=== PATIENT | female | born 2000 | race Caucasian/White ===

== ENCOUNTER 2019-02-26 07:05 | Day surgery (SDC) | payer BC, MEDICAID ==
[2019-02-23 11:50] LABS: BASOPHILS 0.2 % (0-2); EOSINOPHILS 0.8 % (0-7); HEMATOCRIT 40.9 % (36.0-48.0); HEMOGLOBIN 13.7 g/dL (12-16); IMMATURE GRANULOCYTES 0.2 % (0-5); MCHC 33.5 g/dL (31.0-37.0); MCV 86.7 fL (80.0-100.0); MEAN PLATELET VOLUME 9.6 fL (7.4-10.4); MONOCYTES 9.1 % (2-11); NEUTROPHILS 55.7 % (40-80); PLATELET COUNT 279 10x3/uL (130-400); RBC 4.72 10x6/uL (4.00-5.40); RDW 13.2 % (11.5-14.5); WBC 5.1 10x3/uL (4.8-10.8)
[~2019-02-26] VITALS: Ht 154.9 cm; Wt 70.8 kg
[2019-02-26 07:49] LABS: HCG URINE NEGATIVE (NEGATIVE)
[2019-02-26 07:55] VITALS: BP 111/66; Ht 154.9 cm; Wt 70.8 kg
--- NOTE | 2019-02-26 08:10 | NUR ---
RECREATION ATTENDANT SUPERVISOR CALLED AT THIS TIME FOR POSITIVE SUICIDE RISK SCREEN.
--- NOTE | 2019-02-26 08:11 | NUR ---
PT INSTRUCTED TO PUMP ND DUMP FOR 24 HOURS FOLLOWING ADMINISTRATION OF VALIUM.
--- NOTE | 2019-02-26 08:36 | NUR ---
DR. BLAKELY NOTIFIED AND REVIEWED PT'S BEHAVIOR AND ASSESSMENT RESULTS. PT IS A LOW RISK PER DR. BLAKELY. DR. BLAKELY STATED TO GIVE RESOURCES TO PT AT TIME OF DISCHARGE. NO FURTHER ORDERS AT THIS TIME. RESOURCES REVIEWED WITH PT AND SHE VERBALIZED UNDERSTANDING.
--- NOTE | 2019-03-01 07:14 | OP ---
PATIENT NAME: RAMYA CAR MEDICAL RECORD: [id number] :98 LOCATION:D.OPS ADMISSION DATE: SURGEON: MIGUEL A OTTO MD DATE OF OPERATION: 02/26/2019 PREOPERATIVE DIAGNOSIS: Chronic pelvic pain. POSTOPERATIVE DIAGNOSIS: Active pelvic endometriosis. PROCEDURE: 1. Diagnostic laparoscopy. 2. Fulguration of endometriosis. SURGEON: Miguel A Otto MD CARDIAC NURSE SPECIALIST: Shankar. ANESTHESIA: General. ANESTHESIOLOGIST: Dr. Luis KNITTING MACHINE OPERATOR HELPER: Emmanuel Roy FINDINGS: Uterus is retroverted. There are blebs on the anterior surface of the uterus, which may represent active endometriosis. In the cul-de-sac, there was a mild amount of blood. Both tubes were inspected and there appears to be no retrograde flow. Upon clearing the blood from the cul-de-sac, active endometriosis was seen across the lower pelvis and cul-de-sac. SPECIMENS REMOVED: None. ESTIMATED BLOOD LOSS: Minimal. FLUIDS: 800 cc lactated Ringer's. URINE OUTPUT: Quantity sufficient void prior to this procedure. COMPLICATIONS: None. DRAINS: None. INDICATIONS: The patient is a 18-year-old female with dyspareunia and deep pelvic pain with cycles. This pain is interrupting her quality of life and interfering with personal interpersonal relationships as well as work. The patient desires a diagnostic laparoscopy and any indicated procedure. DESCRIPTION OF PROCEDURE: After informed consent was assured, the patient was taken to the operating room where anesthetic was obtained. The patient was placed supine on the table and then prepped and draped in the usual sterile fashion. An incision was made at the umbilicus to accommodate a 5-mm trocar, which was inserted without difficulty and pneumoperitoneum developed. With the patient in Trendelenburg, another port was placed in the midline. With the bowel swept free of the pelvis, the uterus was deflected anteriorly and cul-de-sac viewed with the above findings. A suction supervisor cigar making machine was entered through another port, which was placed in the right lower quadrant. Cul-de-sac OPERATIVE REPORT [id number] ARMYA CAR is clean. After irrigating and removing the irrigant, active endometriosis with active bleeding was noted in the posterior cul-de-sac. There were some lesions also noted on the rectum and these are avoided. With the monopolar hook in the setting of 20 dowd, the endometriosis was fulgurated along the cul-de-sac and uterosacral ligaments. At this point, the pelvis was irrigated one last time and the irrigant removed. The pneumoperitoneum was released as the accessory ports were removed under direct visualization. The primary trocars were removed after release of the complete pneumoperitoneum. Subcuticular stitches applied. Dermabond was placed over these incisions. Sponge, lap, needle counts were correct times 2. The patient went to the recovery area in stable condition. TRANSINT:[id number] Voice Confirmation ID: [id number] DOCUMENT ID: [id number] MIGUEL A OTTO MD at 0714 CC: [id number] DICTATION DATE: 02/26/19 1120 WOUND CARE PHYSICIAN: 02/26/19 1236 [facility] 02/26/19 [facility] [address] [place] [address]
== END 2019-02-26 15:52 | disposition home or self-care (01) ==
LOC: D.OPS 07:05 → D.PAN 07:50 → D.OPS 07:50 → D.PAN 08:30 → D.OPS 09:00 → D.PAN 09:50 → D.OPS 15:52
PROVIDERS: ATTEND Obstetrics & Gynecology
DX: N80.3 Endometriosis of pelvic peritoneum (principal)